=== PATIENT | female | born 1945 | race Caucasian/White ===

== ENCOUNTER 2017-06-11 13:31 | Inpatient (IN) | payer BC, MEDICARE ==
[~2017-06-11] VITALS: Ht 157.5 cm; Wt 63.5 kg
[~2017-06-11 13:31] MED LIST: ALLO100T PO; AMLO2.5T OR; ATOR20TA42 PO; BUPR300T OR; GERITOL; LORTA5 PO; METO50TA OR; MOBI7.5S PO; RANI300T PO; TRAZ50TA4 PO
[2017-06-11 13:38] VITALS: BP 125/76; PULSE 56; RESP 16; TEMP 97.7; O2SAT 98
[2017-06-11] MEDS ORDERED: TRAZ100T6 PO (14:05)
[2017-06-11] MEDS ORDERED: MELO7.5T4 PO (14:05)
[2017-06-11] MEDS ORDERED: ALLO100T PO (14:05)
[2017-06-11] MEDS ORDERED: AMLO2.5T PO (14:05)
[2017-06-11] MEDS ORDERED: METO50TA PO (14:05)
[2017-06-11] MEDS ORDERED: ATOR20TA15 PO (14:05)
[2017-06-11] MEDS ORDERED: BUPR300T PO (14:05)
[2017-06-11] MEDS ORDERED: RANI300T PO (14:05)
--- NOTE | 2017-06-11 14:33 | PD ---
HPI Chief Complaint: Fall Time Seen by Provider: 14:15 Travel History International Travel<30 days: No Contact w/Intl Traveler<30days: No Traveled to known affect area: No History of Present Illness HPI 72-year-old female presents to the emergency room for evaluation of right anterior hip pain for the past 2 days. Patient states 2 days ago she tripped while taking out the trash and felt to the right landing on her right hip. She denies hitting her head or loss of consciousness. States she caught herself with her wrist but denies wrist pain at this time. Patient was able to get up off the floor without difficulty or help. She has been ambulating since then around her house but with pain. Patient took Tylenol for the generalized soreness she fell which relieved her symptoms but she has persistent hip pain. Pain is localized to the anterior aspect and worse with any range of motion. At rest, she has no pain. Denies paresthesias. States a range of motion and radiates to the buttocks but otherwise there is no radiation. Orthopedic physician is Dr. Burgess. [facility] Past Medical History Arthritis: Yes Blood Disorders: No Anxiety: Yes Depression: Yes Cardiovascular Problems: Yes High Cholesterol: Yes Diminished Hearing: No Endocrine: No Gastrointestinal Disorders: Yes GERD: Yes Gout: Yes Genitourinary: No Headaches: Yes Hypertension: Yes Immune Disorder: No Implanted Vascular Access Dvce: No Musculoskeletal: Yes Neurologic: Yes Psychiatric: Yes Reproductive: No Respiratory: No Immunizations Current: Yes ?: Not Past Surgical History Appendectomy: Yes Gynecologic Surgery: Yes (HYST) Hysterectomy: Yes Other Surgery: Yes (MOUTS SURGERY) Social History Alcohol Use: Yes (occ) Tobacco Use: No Substance Use: No Allergies-Medications (Allergen,Severity, Reaction): Coded Allergies: escitalopram (Unverified Allergy, Mild, 04/11/17) Reported Meds & Prescriptions Reported Meds & Active Scripts Active Reported Trazodone (Trazodone HCl) 100 Mg Tablet 100 Mg PO HS Ranitidine (Ranitidine HCl) 300 Mg Tab 300 Mg PO DAILY Metoprolol Tartrate 50 Mg Tab 50 Mg PO BID Meloxicam 7.5 Mg Tab 7.5 Mg PO DAILY Bupropion HCl ER 24 HR (Bupropion HCl) 300 Mg Tab 300 Mg PO DAILY Atorvastatin (Atorvastatin Calcium) 20 Mg Tab 20 Mg PO HS Amlodipine (Amlodipine Besylate) 2.5 Mg Tab 2.5 Mg PO DAILY Allopurinol 100 Mg Tab 100 Mg PO DAILY Review of Systems Except as stated in HPI: all other systems reviewed are Neg Physical Exam Narrative GENERAL: Well-nourished, well-developed female in no acute distress. Afebrile. Ambulatory. SKIN: Focused skin assessment warm/dry. HEAD: Normocephalic. EYES: No scleral icterus. No injection or drainage. NECK: Supple, trachea midline. No JVD or lymphadenopathy. CARDIOVASCULAR: Regular rate and rhythm without murmurs, gallops, or rubs. RESPIRATORY: Breath sounds equal bilaterally. No accessory muscle use. MUSCULOSKELETAL: No cyanosis. Slightly limited range motion of the right hip. No rotation or shortening. 2+ dorsalis pedis pulse. No obvious edema. Focal tenderness to palpation of the iliofemoral ligament. Data Data Last Documented VS Vital Signs Date Time Temp Pulse Resp B/P (MAP) Pulse Ox O2 Delivery O2 Flow Rate FiO2 06/11/17 17:33 65 18 175/76 (109) 98 Room Air 06/11/17 13:38 97.7 Orders Orders Pelvis, Ap Only (Routine) (06/11/17 ) Hip, Uni(Ap&Lat) Wo Ap Pelvis (06/11/17 ) Electrocardiogram (06/11/17 18:58) Complete Blood Count With Diff (06/11/17 18:58) Comprehensive Metabolic Panel (06/11/17 18:58) Prothrombin Time / Inr (Pt) (06/11/17 18:58) Act Partial Throm Time (Ptt) (06/11/17 18:58) Type And Screen (06/11/17 18:58) Iv Access Insert/Monitor (06/11/17 18:58) Oximetry (06/11/17 18:58) Ice/Cold Pack (06/11/17 18:58) Ecg Monitoring (06/11/17 18:58) Sodium Chloride 0.9% Flush (Ns Flush) (06/11/17 19:00) Diet Npo (06/11/17 Dinner) Admit To Inpatient (06/11/17 ) Vital Signs (Adult) Q4H (06/11/17 19:15) Activity Bed Rest (06/11/17 19:15) Diet Npo (06/12/17 Breakfast) Diet Regular Basic (06/11/17 Dinner) Sodium Chlor 0.9% 1000 Ml Inj (Ns 1000 M (06/11/17 19:15) Sodium Chloride 0.9% Flush (Ns Flush) (06/11/17 19:15) Sodium Chloride 0.9% Flush (Ns Flush) (06/11/17 21:00) Ondansetron Inj (Zofran Inj) (06/11/17 19:15) Comprehensive Metabolic Panel (06/12/17 06:00) Complete Blood Count With Diff (06/12/17 06:00) Acetaminophen (Tylenol) (06/11/17 19:15) Acetamin-Hydrocod 325-5 Mg ([place] 5-325 (06/11/17 19:15) Morphine Inj (Morphine Inj) (06/11/17 19:15) Docusate Sodium-Senna (Mariela-Colace) (06/11/17 21:00) Magnesium Hydroxide Liq (Milk Of Magnesi (06/11/17 19:15) Sennosides (Senokot) (06/11/17 19:15) Bisacodyl Supp (Dulcolax Supp) (06/11/17 19:15) Lactulose Liq (Lactulose Liq) (06/11/17 19:15) Inpatient Certification (06/11/17 ) Allopurinol (Zyloprim) (06/12/17 09:00) Amlodipine (Norvasc) (06/12/17 09:00) Atorvastatin (Lipitor) (06/11/17 21:00) Metoprolol Tartrate (Lopressor) (06/11/17 21:00) Trazodone (Desyrel) (06/11/17 21:00) Bupropion Sr (Wellbutrin Sr) (06/11/17 21:00) Consult Orthopedic (06/11/17 ) Pill Splitter (Pill Splitter) (06/11/17 19:45) Admit Order (Ed Use Only) (06/11/17 19:36) Vital Signs (Adult) Q4H (06/11/17 19:36) Activity Bed Rest (06/11/17 19:36) Notify Dr: Other (06/11/17 19:36) Labs Laboratory Tests Test 06/11/17 19:12 White Blood Count 4.6 TH/MM3 Red Blood Count 3.79 MIL/MM3 Hemoglobin 11.7 GM/DL Hematocrit 35.1 % Mean Corpuscular Volume 92.5 FL Mean Corpuscular Hemoglobin 30.7 PG Mean Corpuscular Hemoglobin Concent 33.3 % Red Cell Distribution Width 14.0 % Platelet Count 120 TH/MM3 Mean Platelet Volume 7.7 FL Neutrophils (%) (Auto) 57.3 % Lymphocytes (%) (Auto) 26.2 % Monocytes (%) (Auto) 7.1 % Eosinophils (%) (Auto) 8.9 % Basophils (%) (Auto) 0.5 % Neutrophils # (Auto) 2.7 TH/MM3 Lymphocytes # (Auto) 1.2 TH/MM3 Monocytes # (Auto) 0.3 TH/MM3 Eosinophils # (Auto) 0.4 TH/MM3 Basophils # (Auto) 0.0 TH/MM3 CBC Comment DIFF FINAL Differential Comment Blood Urea Nitrogen 19 MG/DL Random Glucose 78 MG/DL Albumin 3.3 GM/DL Calcium Level 8.3 MG/DL Sodium Level 135 MEQ/L Potassium Level 3.9 MEQ/L Chloride Level 101 MEQ/L Carbon Dioxide Level 25.9 MEQ/L Anion Gap 8 MEQ/L MDM Medical Decision Making Medical Screen Exam Complete: Yes Emergency Medical Condition: Yes Medical Record Reviewed: Yes Differential Diagnosis Strength, sprain, contusion fracture Narrative Course 72-year-old female presents to the emergency room for evaluation of right hip pain for the past 3 days. Patient slipped and fell landing on her right hip. She was able to get up and has been able to ambulate since then but with pain. Pain is localized anteriorly. Radiates to the buttocks on occasion. Physical exam is reassuring. Slightly limited range motion of the right hip. No rotation or shortening. 2+ dorsalis pedis pulse. No obvious edema. Focal tenderness to palpation of the iliofemoral ligament. Have low suspicion for fracture. Pelvic x-ray was obtained which shows deformity at which time hip AP and pelvis x-rays were obtained. X-rays show a femoral neck fracture without dislocation. I spoke to the orthopedic surgeon on-call, Dr. Werner, who recommends admission with transfer to [facility] for surgical intervention tomorrow. Patient will be nothing by mouth at midnight. She will be admitted to medical service. I spoke to Dr. Cruz who agrees to accept this patient to her service. Preop EKG shows sinus bradycardia with rate of 55 bpm, similar to previous; signed off by my attending physician, Dr. Miller. Physician Communication Physician Communication I spoke to Dr. Werner who recommends admission to the main hospital for surgical intervention tomorrow. Diagnosis Primary Impression: Closed fracture of neck of right femur Qualified Codes: S72.001A - Fracture of unspecified part of neck of right femur, initial encounter for closed fracture Admitting Information Admitting Physician Requests: Admit Referrals: Primary Care Physician Condition: Stable Joyce Mack Jun 11, 2017 14:33
--- NOTE | 2017-06-11 16:04 | RADRPT ---
EXAM DATE/TIME: 06/11/2017 15:42 [facility] COMPARISON: HIP RIGHT (AP&LAT 2/3VWS) WO AP PELVIS, June 11, 2017, 15:49. INDICATIONS : Right hip pain and unable to bear weight , patient fell 2 days ago. MEDICAL HISTORY : None. SURGICAL HISTORY : None. ENCOUNTER: Initial ACUITY: 2 days PAIN SCORE: 9/10 LOCATION: Right hip FINDINGS: There is a subcapital fracture the right femoral neck. Femoral head is not dislocated. CONCLUSION: 1. Right femoral neck fracture Torsten Diaz MD on June 11, 2017 at 16:02 Board Certified Radiologist. This report was verified electronically.
--- NOTE | 2017-06-11 16:45 | RADRPT ---
EXAM DATE/TIME: 06/11/2017 15:49 [facility] COMPARISON: No previous studies available for comparison. INDICATIONS : Right hip pain and unable to bear weight after fall 2 days ago. MEDICAL HISTORY : None. SURGICAL HISTORY : None. ENCOUNTER: Initial ACUITY: 2 days PAIN SCORE: 9/10 LOCATION: Right hip FINDINGS: Subcapital fracture the right femoral neck. Femoral head is not dislocated. The joint space is mainta ined. CONCLUSION: 1. Right femoral neck fracture Torsten Diaz MD on June 11, 2017 at 16:43 Board Certified Radiologist. This report was verified electronically.
[2017-06-11 17:33] VITALS: BP 175/76; PULSE 65; RESP 18; O2SAT 98
[2017-06-11] MEDS ORDERED: SODIUM CHLORIDE 0.9% FLUSH 10 ML FLUSH IVF PRN (19:00)
[2017-06-11] MEDS ORDERED: ACETAMINOPHEN 325 MG TAB PO PRN (19:15)
[2017-06-11] MEDS ORDERED: ONDANSETRON HCL 4 MG/2 ML VIAL IVP PRN (19:15)
[2017-06-11] MEDS ORDERED: SODIUM CHLORIDE 0.9% FLUSH 10 ML FLUSH IV FLUSH PRN (19:15)
[2017-06-11] MEDS ORDERED: BISACODYL 10 MG SUPP RECTAL PRN (19:15)
[2017-06-11] MEDS ORDERED: MAGNESIUM HYDROXIDE SUSP 30 ML CUP PO PRN (19:15)
[2017-06-11] MEDS ORDERED: MORPHINE SULFATE 4 MG/ML INJ IV PUSH PRN (19:15)
[2017-06-11] MEDS ORDERED: ACETAMINOPHEN/HYDROcodone 325 MG/5 MG TAB PO PRN (19:15)
[2017-06-11] MEDS ORDERED: SENNOSIDES 8.6 MG TAB PO PRN (19:15)
[2017-06-11] MEDS ORDERED: LACTULOSE SYRUP 20 GM/30 ML CUP PO PRN (19:15)
[2017-06-11 19:27] LABS: AUTOMATED NEUTROPHIL # 2.7 TH/MM3 (1.8-7.7); BASOPHIL % 0.5 % (0.0-2.0); EOSINOPHIL # 0.4 TH/MM3 (0-0.4); EOSINOPHIL % 8.9 % (0.0-4.0); HEMATOCRIT 35.1 % (35.0-46.0); HEMO FLAGS DIFF FINAL; LYMPH % 26.2 % (9.0-44.0); LYMPHOCYTE # 1.2 TH/MM3 (1.0-4.8); MEAN CELL VOLUME 92.5 FL (80.0-100.0); MEAN CORPUSCULAR HEMOGLOBIN 30.7 PG (27.0-34.0); MEAN CORPUSCULAR HGB CONC 33.3 % (32.0-36.0); MONO % 7.1 % (0.0-8.0); NEUT % 57.3 % (16.0-70.0); PLATELET COUNT 120 TH/MM3 (150-450); RED BLOOD COUNT 3.79 MIL/MM3 (4.00-5.30); WHITE BLOOD COUNT 4.6 TH/MM3 (4.0-11.0)
[2017-06-11 19:38] LABS: CHLORIDE 101 MEQ/L (98-107); POTASSIUM 3.9 MEQ/L (3.5-5.1); SODIUM (NA) 135 MEQ/L (136-145)
[2017-06-11 19:42] LABS: ANION GAP 8 MEQ/L (5-15); BICARBONATE 25.9 MEQ/L (21.0-32.0); BLOOD UREA NITROGEN 19 MG/DL (7-18)
[2017-06-11 19:45] LABS: ALT (GPT) 25 U/L (10-53); APTT (PATIENT) 25.5 SEC (24.3-30.1); AST (GOT) 24 U/L (15-37); GLOMERULAR FILTRATION RATE 59 ML/MIN (>89); PROTHROMBIN TIME - PATIENT 10.7 SEC (9.8-11.6)
[2017-06-11] MEDS ORDERED: PILL SPLITTER OTHER PRN (19:45)
[2017-06-11 19:47] LABS: TOTAL BILIRUBIN ADULT 0.6 MG/DL (0.2-1.0)
[2017-06-11 19:48] LABS: ALKALINE PHOSPHATASE 50 U/L (45-117)
[2017-06-11] MEDS: SODIUM CHLOR 0.9% 1000 ML INJ 1,000 ML IV SCH (20:16)
[2017-06-11 20:26] VITALS: O2SAT 97
[2017-06-11 20:27] VITALS: BP 154/80; PULSE 57; RESP 16; O2SAT 97
[2017-06-11] MEDS: SODIUM CHLORIDE 0.9% FLUSH 10 ML FLUSH IV FLUSH SCH (21:00)
[2017-06-11] MEDS: DOCUSATE SODIUM 50 MG/SENNA 8.6 MG TAB PO SCH (21:00)
[2017-06-11] MEDS: ATORVASTATIN 20 MG TAB PO SCH (21:19)
[2017-06-11] MEDS: METOPROLOL TARTRATE 50 MG TAB PO SCH (21:19)
[2017-06-11] MEDS: traZODone HCL 100 MG TAB PO SCH (21:19)
[2017-06-11] MEDS: buPROPion HCL 150 MG SUSTAINED RELEASE TAB PO SCH (21:19)
[2017-06-11 21:25] VITALS: BP 156/84; PULSE 56; RESP 16; O2SAT 95
[2017-06-11] MEDS ORDERED: INSULIN HUMAN REGULAR 1,000 UNITS/10 ML VIAL SQ PRN (22:30)
[2017-06-11] MEDS ORDERED: LACTATED RINGER'S 1000 ML IV PRN (22:30)
[2017-06-11] MEDS ORDERED: POVIDONE IODINE 5% (ANTISEPSIS KIT) 4 APPLICATIONS EACH NARE PRN (22:30)
[2017-06-11] MEDS ORDERED: CHLORHEXIDINE GLUCONATE 2 % 1 PACK (2 CLOTHS) TOPICAL PRN (22:30)
[2017-06-11] MEDS ORDERED: SODIUM CHLORID 0.9% 500 ML IV PRN (22:30)
[2017-06-12] VITALS (8 sets, daily range): BP systolic 125–184; BP diastolic 59–87; PULSE 50–60; RESP 16–17; TEMP 96.6–97.9; O2SAT 95–97
[2017-06-12] MEDS: SODIUM CHLOR 0.9% 1000 ML INJ 1,000 ML IV SCH ×3 (05:15→20:39)
[2017-06-12 06:36] LABS: AUTOMATED NEUTROPHIL # 3.1 TH/MM3 (1.8-7.7); BASOPHIL # 0.1 TH/MM3 (0-0.2); BASOPHIL % 0.9 % (0.0-2.0); EOSINOPHIL # 0.5 TH/MM3 (0-0.4); EOSINOPHIL % 8.9 % (0.0-4.0); HEMATOCRIT 33.9 % (35.0-46.0); HEMO FLAGS DIFF FINAL; LYMPHOCYTE # 1.4 TH/MM3 (1.0-4.8); MEAN CELL VOLUME 93.5 FL (80.0-100.0); MEAN CORPUSCULAR HEMOGLOBIN 31.2 PG (27.0-34.0); MEAN CORPUSCULAR HGB CONC 33.4 % (32.0-36.0); MONO % 9.7 % (0.0-8.0); NEUT % 55.5 % (16.0-70.0); PLATELET COUNT 108 TH/MM3 (150-450); RED BLOOD COUNT 3.63 MIL/MM3 (4.00-5.30); RED CELL DISTRIBUTION WIDTH 14.8 % (11.6-17.2); WHITE BLOOD COUNT 5.6 TH/MM3 (4.0-11.0)
[2017-06-12 07:04] LABS: ALT (GPT) 21 U/L (10-53); ANION GAP 8 MEQ/L (5-15); AST (GOT) 17 U/L (15-37); BICARBONATE 26.5 MEQ/L (21.0-32.0); BLOOD UREA NITROGEN 16 MG/DL (7-18); CHLORIDE 104 MEQ/L (98-107); GLOMERULAR FILTRATION RATE 67 ML/MIN (>89); POTASSIUM 3.7 MEQ/L (3.5-5.1); SODIUM (NA) 138 MEQ/L (136-145)
[2017-06-12 07:06] LABS: ALKALINE PHOSPHATASE 50 U/L (45-117); TOTAL BILIRUBIN ADULT 0.5 MG/DL (0.2-1.0)
[2017-06-12] MEDS: METOPROLOL TARTRATE 50 MG TAB PO SCH ×2 (08:52→20:38)
[2017-06-12] MEDS ORDERED: PNEUMOCOCCAL POLYVALENT INJ 25 MCG/0.5 ML SYR IM ONE (09:00)
[2017-06-12] MEDS: amLODIPine BESYLATE 5 MG TAB PO SCH (09:00)
[2017-06-12] MEDS ORDERED: INFLUENZA VIRUS VACCINE (QUADRIVALENT) 0.5 ML SYR IM ONE (09:00)
[2017-06-12] MEDS: SODIUM CHLORIDE 0.9% FLUSH 10 ML FLUSH IV FLUSH SCH ×2 (09:00→20:38)
[2017-06-12] MEDS: ALLOPURINOL 100 MG TAB PO SCH (09:00)
[2017-06-12] MEDS: DOCUSATE SODIUM 50 MG/SENNA 8.6 MG TAB PO SCH ×2 (09:00→20:37)
[2017-06-12] MEDS: buPROPion HCL 150 MG SUSTAINED RELEASE TAB PO SCH ×2 (09:00→20:38)
--- NOTE | 2017-06-12 10:17 | HHI.HP ---
[facility] Service [place] [facility] Primary Care Physician Eloisa Kwong MD Admission Diagnosis right hip fracture Diagnoses: (1) Closed fracture of neck of right femur Diagnosis: Principal Travel History International Travel<30 Days: No Contact w/Intl Traveler <30 Da: No Traveled to Known Affected Are: No History of Present Illness Mrs. Willams is a 72-year-old female. She is here secondary to a right hip fracture. She fell on her right hip 2 days prior to coming into the ER. Over these past 2 days she has had pain with weightbearing and attempts at ambulation. She says she is not in too much pain when she sits in the bed. Pain has been referred to the right groin. She came to the emergency room last night was discovered to have a fracture of the right hip. No other complaints. The following was accidental not related to syncope. No positive cardiac or pulmonary history. Baseline medical conditions or osteoarthritis, anxiety disorder, depression, hyperlipidemia, reflux, gout, hypertension. Medically she is clear for surgery today. Review of Systems Constitutional: DENIES: Fatigue, Fever, Chills, Night Sweats Eyes: DENIES: Blurred vision, Diplopia, Eye inflammation, Eye pain Ears, nose, mouth, throat: DENIES: Tinnitus, Hearing loss, Vertigo, Nasal discharge Respiratory: DENIES: Apneas, Cough, Wheezing, Shortness of breath Cardiovascular: DENIES: Chest pain, Palpitations, Syncope Gastrointestinal: DENIES: Abdominal pain, Black stools, Bloody stools Musculoskeletal: COMPLAINS OF: Joint pain, Stiffness, Joint Swelling Integumentary: DENIES: Abnormal pigmentation, Pruritus, Rash, Nail changes Hematologic/lymphatic: DENIES: Bruising, Lymphadenopathy Immunologic/allergic: DENIES: Eczema, Urticaria Neurologic: DENIES: Abnormal gait, Headache, Paresthesias Psychiatric: DENIES: Anxiety, Confusion, Hallucinations Past Family Social History Past Medical History Osteoarthritis Gen. anxiety disorder Depression Hyperlipidemia Gastroesophageal reflux disease Gout Hypertension Past Surgical History Appendectomy Hysterectomy Left shoulder mass removal Bilateral knee surgeries/replacements Reported Medications Reported Meds & Active Scripts Active Reported Trazodone (Trazodone HCl) 100 Mg Tablet 100 Mg PO HS Ranitidine (Ranitidine HCl) 300 Mg Tab 300 Mg PO DAILY Metoprolol Tartrate 50 Mg Tab 50 Mg PO BID Meloxicam 7.5 Mg Tab 7.5 Mg PO DAILY Bupropion HCl ER 24 HR (Bupropion HCl) 300 Mg Tab 300 Mg PO DAILY Atorvastatin (Atorvastatin Calcium) 20 Mg Tab 20 Mg PO HS Amlodipine (Amlodipine Besylate) 2.5 Mg Tab 2.5 Mg PO DAILY Allopurinol 100 Mg Tab 100 Mg PO DAILY Allergies: Coded Allergies: escitalopram (Unverified Allergy, Mild, 04/11/17) Active Ordered Medications Administered Medications Medications (Trade) Dose Ordered Sig/Homar Route PRN Reason Start Time Stop Time Status Last Admin Dose Admin Sodium Chloride 1,000 ml @ 100 mls/hr Q10H IV 06/11/17 19:15 06/11/17 20:16 Atorvastatin Calcium (Lipitor) 20 mg HS PO 06/11/17 21:00 06/11/17 21:19 Bupropion HCl (Wellbutrin Sr) 150 mg Q12HR PO 06/11/17 21:00 06/11/17 21:19 Metoprolol Tartrate (Lopressor) 50 mg BID PO 06/11/17 21:00 06/12/17 08:52 Trazodone HCl (Desyrel) 100 mg HS PO 06/11/17 21:00 06/11/17 21:19 Lactated Ringer's 1,000 ml @ 30 mls/hr Q24H PRN IV SEE LABEL COMMENTS 06/11/17 22:30 06/14/17 22:29 06/12/17 04:43 Family History Liver cancer in mother Colon cancer in maternal grandmother Coronary artery disease in father Breast cancer in sister Social History Occasional alcohol use No smoking history No illicit drug abuse history Physical Exam Vital Signs Vital Signs Date Time Temp Pulse Resp B/P (MAP) Pulse Ox O2 Delivery O2 Flow Rate FiO2 06/12/17 04:23 97.3 56 17 125/67 (86) 96 06/12/17 00:30 97.5 57 17 184/87 (119) 96 06/11/17 23:02 06/11/17 21:25 56 16 156/84 (108) 95 Room Air 06/11/17 21:01 Room Air 06/11/17 20:27 57 16 154/80 (104) 97 06/11/17 20:26 97 06/11/17 17:33 65 18 175/76 (109) 98 Room Air 06/11/17 13:38 97.7 56 16 125/76 (92) 98 Physical Exam GENERAL: NAD, A&Ox3 HEAD: Normocephalic. NECK: Supple, trachea midline. No lymphadenopathy. EYES: No scleral icterus. No injection or drainage. CARDIOVASCULAR: Regular rate and rhythm without murmurs, gallops, or rubs. RESPIRATORY: Breath sounds equal bilaterally. No accessory muscle use. GASTROINTESTINAL: Abdomen soft, non-tender, nondistended. MUSCULOSKELETAL: No cyanosis, or edema. Limited range of motion and tenderness at right hip SKIN: Warm and dry. NEURO: No focal neurological deficitis. Laboratory Laboratory Tests Test 06/11/17 19:12 06/12/17 05:48 White Blood Count 4.6 5.6 Red Blood Count 3.79 3.63 Hemoglobin 11.7 11.3 Hematocrit 35.1 33.9 Mean Corpuscular Volume 92.5 93.5 Mean Corpuscular Hemoglobin 30.7 31.2 Mean Corpuscular Hemoglobin Concent 33.3 33.4 Red Cell Distribution Width 14.0 14.8 Platelet Count 120 108 Mean Platelet Volume 7.7 8.1 Neutrophils (%) (Auto) 57.3 55.5 Lymphocytes (%) (Auto) 26.2 25.0 Monocytes (%) (Auto) 7.1 9.7 Eosinophils (%) (Auto) 8.9 8.9 Basophils (%) (Auto) 0.5 0.9 Neutrophils # (Auto) 2.7 3.1 Lymphocytes # (Auto) 1.2 1.4 Monocytes # (Auto) 0.3 0.5 Eosinophils # (Auto) 0.4 0.5 Basophils # (Auto) 0.0 0.1 CBC Comment DIFF FINAL DIFF FINAL Differential Comment Prothrombin Time 10.7 Prothromb Time International Ratio 1.0 Activated Partial Thromboplast Time 25.5 Blood Urea Nitrogen 19 16 Creatinine 0.93 0.83 Random Glucose 78 83 Total Protein 6.4 6.2 Albumin 3.3 3.1 Calcium Level 8.3 8.8 Alkaline Phosphatase 50 50 Aspartate Amino Transf (AST/SGOT) 24 17 Alanine Aminotransferase (ALT/SGPT) 25 21 Total Bilirubin 0.6 0.5 Sodium Level 135 138 Potassium Level 3.9 3.7 Chloride Level 101 104 Carbon Dioxide Level 25.9 26.5 Anion Gap 8 8 Estimat Glomerular Filtration Rate 59 67 Result Diagram: 06/12/1754706/12/17547 Caprini VTE Risk Assessment Caprini VTE Risk Assessment: Mod/High Risk (score >= 2) Caprini Risk Assessment Model Point Value = 1 Point Value = 2 Point Value = 3 Point Value = 5 Age 41-60 Minor surgery BMI > 25 kg/m2 Swollen legs Varicose veins or History of unexplained or recurrent spontaneous Oral contraceptives or hormone replacement Sepsis (< 1 month) Serious lung disease, including pneumonia (< 1 month) Abnormal pulmonary function Acute myocardial infarction Congestive heart failure (< 1 month) History of inflammatory bowel disease Medical patient at bed rest Age 61-74 Arthroscopic surgery Major open surgery (> 45 min) Laparoscopic surgery (> 45 min) Malignancy Confined to bed (> 72 hours) Immobilizing plaster cast Central venous access Age >= 75 History of VTE Family history of VTE Factor V Leiden Prothrombin 14051A Lupus anticoagulant Anticardiolipin antibodies Elevated serum homocysteine Heparin-induced thrombocytopenia Other congenital or acquired thrombophilia Stroke (< 1 month) Elective arthroplasty Hip, pelvis, or leg fracture Acute spinal cord injury (< 1 month) Prophylaxis Regimen Total Risk Factor Score Risk Level Prophylaxis Regimen 0-1 Low Early ambulation 2 Moderate Order ONE of the following: *Sequential Compression Device (SCD) *Heparin 5000 units SQ BID 3-4 Higher Order ONE of the following medications: *Heparin 5000 units SQ TID *Enoxaparin/Lovenox 40 mg SQ daily (WT < 150 kg, CrCl > 30 mL/min) *Enoxaparin/Lovenox 30 mg SQ daily (WT < 150 kg, CrCl > 10-29 mL/min) *Enoxaparin/Lovenox 30 mg SQ BID (WT < 150 kg, CrCl > 30 mL/min) AND/OR *Sequential Compression Device (SCD) 5 or more Highest Order ONE of the following medications: *Heparin 5000 units SQ TID (Preferred with Epidurals) *Enoxaparin/Lovenox 40 mg SQ daily (WT < 150 kg, CrCl > 30 mL/min) *Enoxaparin/Lovenox 30 mg SQ daily (WT < 150 kg, CrCl > 10-29 mL/min) *Enoxaparin/Lovenox 30 mg SQ BID (WT < 150 kg, CrCl > 30 mL/min) AND *Sequential Compression Device (SCD) Assessment and Plan Problem List: (1) Closed fracture of neck of right femur ICD Code: S72.001A - Fracture of unspecified part of neck of right femur, initial encounter for closed fracture Status: Acute Assessment and Plan Assessment and plan 72-year-old female admitted secondary to right hip fracture Acute right hip fracture Surgical repair plan Continue as needed pain treatments Orthotic consulted PT to start postop Blood thinners to start postop Gen. anxiety disorder Depression Continue baseline treatments Follow clinically Hyperlipidemia Follows in outpatient No change to baseline treatments Gastroesophageal reflux disease Continue baseline treatments Gout Monitor clinically No change to baseline managements Hypertension Follow blood pressures Continue baseline treatments DVT prophylaxis SCDs for now Anticoagulation postop, per orthopedic recommendations Physician Certification 2 Midnight Certification Type: Admission for Inpatient Services Order for Inpatient Services The services are ordered in accordance with Medicare regulations or non- Medicare payer requirements, as applicable. In the case of services not specified as inpatient-only, they are appropriately provided as inpatient services in accordance with the 2-midnight benchmark. Estimated LOS (days): 3 days is the estimated time the patient will need to remain in the hospital, assuming treatment plan goals are met and no additional complications. Post-Hospital Plan: Home Problem Qualifiers (1) Closed fracture of neck of right femur: Qualified Codes: S72.001A - Fracture of unspecified part of neck of right femur , initial encounter for closed fracture Ye Riggs MD Jun 12, 2017 10:17
[2017-06-12] MEDS ORDERED: PROPOFOL 200 MG/20 ML AMP IV ONE (12:00)
[2017-06-12] MEDS ORDERED: MIDAZOLAM HCL 2 MG/2 ML VIAL IV ONE (12:00)
[2017-06-12] MEDS ORDERED: ePHEDrine/NS 25 MG/5 ML SYR IV ONE (12:00)
[2017-06-12] MEDS ORDERED: PERC5TAB12 PO (13:08)
[2017-06-12] MEDS ORDERED: ceFAZolin 2 GM PREMIX 50 ML IV SCH (13:15)
[2017-06-12] MEDS ORDERED: ceFAZolin INJ 1,000 MG VIAL ONE (13:54)
[2017-06-12] MEDS ORDERED: VANCOMYCIN HCL 1000 MG VIAL ONE (13:54)
--- NOTE | 2017-06-12 14:17 | PD.CONS ---
cc: Juan Werner Jr., MD HPI Service Orthopedic Surgeons Consult Requested By Primary Care Physician Eloisa Kwong MD Admission Diagnosis right hip fracture Diagnoses: (1) Closed fracture of neck of right femur History of Present Illness 72-year-old female relatively healty presented with right hip pain and difficulty weightbearing since Monday. -s/p fall at home while taking on the trash. -c/o right hip pain and inability bear weight. -X-ray taken the emergency department reveal a valgus impacted right femoral neck fracture. -Denies any head injuries. Denies loss of consciousness. -Currently is alert, pain localized at the hip, patient's is 3 out of 10, exacerbated by any range of motion, log roll, WB, relieved at rest and with IV pain medicine, pain is sharp nonradiating, dull, not associated with any paresthesia and numbness to the extremity. ROS - General Review of Systems Constitutional: DENIES: Fatigue, Fever, Chills, Night Sweats Eyes: DENIES: Blurred vision, Diplopia, Eye inflammation, Eye pain Ears, nose, mouth, throat: DENIES: Tinnitus, Hearing loss, Vertigo, Nasal discharge Respiratory: DENIES: Apneas, Cough, Wheezing, Shortness of breath Cardiovascular: DENIES: Chest pain, Palpitations, Syncope Gastrointestinal: DENIES: Abdominal pain, Black stools, Bloody stools Musculoskeletal: COMPLAINS OF: Joint pain, Stiffness, Joint Swelling Integumentary: DENIES: Abnormal pigmentation, Pruritus, Rash, Nail changes Hematologic/lymphatic: DENIES: Bruising, Lymphadenopathy Immunologic/allergic: DENIES: Eczema, Urticaria Neurologic: DENIES: Abnormal gait, Headache, Paresthesias Psychiatric: DENIES: Anxiety, Confusion, Hallucinations PFSH Past Family Social History Past Medical History Osteoarthritis Gen. anxiety disorder Depression Hyperlipidemia Gastroesophageal reflux disease Gout Hypertension Past Surgical History Appendectomy Hysterectomy Left shoulder mass removal Bilateral knee surgeries/replacements Reported Medications Reported Meds & Active Scripts Active Reported Trazodone (Trazodone HCl) 100 Mg Tablet 100 Mg PO HS Ranitidine (Ranitidine HCl) 300 Mg Tab 300 Mg PO DAILY Metoprolol Tartrate 50 Mg Tab 50 Mg PO BID Meloxicam 7.5 Mg Tab 7.5 Mg PO DAILY Bupropion HCl ER 24 HR (Bupropion HCl) 300 Mg Tab 300 Mg PO DAILY Atorvastatin (Atorvastatin Calcium) 20 Mg Tab 20 Mg PO HS Amlodipine (Amlodipine Besylate) 2.5 Mg Tab 2.5 Mg PO DAILY Allopurinol 100 Mg Tab 100 Mg PO DAILY Allergies: Coded Allergies: escitalopram (Unverified Allergy, Mild, 04/11/17) Past Family Social History Past Medical History Osteoarthritis Gen. anxiety disorder Depression Hyperlipidemia Gastroesophageal reflux disease Gout Hypertension Past Surgical History Appendectomy Hysterectomy Left shoulder mass removal Bilateral knee surgeries/replacements Allergies: Coded Allergies: escitalopram (Unverified Allergy, Mild, 04/11/17) Active Ordered Medications Current Medications Medications (Trade) Dose Ordered Sig/Homar Route Start Time Stop Time Status Last Admin Sodium Chloride 1,000 ml @ 100 mls/hr Q10H IV 06/11/17 19:15 06/11/17 20:16 (NS Flush) 2 ml UNSCH PRN IV FLUSH 06/11/17 19:15 (NS Flush) 2 ml BID IV FLUSH 06/11/17 21:00 (Zofran Inj) 4 mg Q6H PRN IVP 06/11/17 19:15 (Tylenol) 650 mg Q6H PRN PO 06/11/17 19:15 ([place] 5-325 Mg) 1 tab Q4H PRN PO 06/11/17 19:15 (Morphine Inj) 2 mg Q3H PRN IV PUSH 06/11/17 19:15 (Mariela-Colace) 1 tab BID PO 06/11/17 21:00 (Milk Of Magnesia Liq) 30 ml Q12H PRN PO 06/11/17 19:15 (Senokot) 17.2 mg Q12H PRN PO 06/11/17 19:15 (Dulcolax Supp) 10 mg DAILY PRN RECTAL 06/11/17 19:15 (Lactulose Liq) 30 ml DAILY PRN PO 06/11/17 19:15 (Zyloprim) 100 mg DAILY PO 06/12/17 09:00 (Norvasc) 2.5 mg DAILY PO 06/12/17 09:00 (Lipitor) 20 mg HS PO 06/11/17 21:00 06/11/17 21:19 (Wellbutrin Sr) 150 mg Q12HR PO 06/11/17 21:00 06/11/17 21:19 (Lopressor) 50 mg BID PO 06/11/17 21:00 06/12/17 08:52 (Desyrel) 100 mg HS PO 06/11/17 21:00 06/11/17 21:19 (Pill Splitter) 1 ea UNSCH PRN OTHER 06/11/17 19:45 Lactated Ringer's 1,000 ml @ 30 mls/hr Q24H PRN IV 06/11/17 22:30 06/14/17 22:29 06/12/17 04:43 Sodium Chloride 500 ml @ 30 mls/hr [id number] PRN IV 06/11/17 22:30 06/14/17 22:29 (Betadine 5% Antisepsis Kit) 1 applic [employer] PRN EACH NARE 06/11/17 22:30 06/14/17 22:29 (Chlorhexidine 2% Cloth) 3 pack [employer] PRN TOPICAL 06/11/17 22:30 06/14/17 22:29 (NovoLIN R INJ) See Protocol Table ... [employer] PRN SQ 06/11/17 22:30 06/14/17 22:29 Cefazolin Sodium/ Dextrose 50 ml @ 150 mls/hr [employer] IV 06/12/17 13:15 06/16/17 13:14 Reported Meds & Active Scripts Active Percocet (Oxycodone-Acetaminophen) 5-325 mg Tab 1 Tab PO Q4H PRN Reported Trazodone (Trazodone HCl) 100 Mg Tablet 100 Mg PO HS Ranitidine (Ranitidine HCl) 300 Mg Tab 300 Mg PO DAILY Metoprolol Tartrate 50 Mg Tab 50 Mg PO BID Meloxicam 7.5 Mg Tab 7.5 Mg PO DAILY Bupropion HCl ER 24 HR (Bupropion HCl) 300 Mg Tab 300 Mg PO DAILY Atorvastatin (Atorvastatin Calcium) 20 Mg Tab 20 Mg PO HS Amlodipine (Amlodipine Besylate) 2.5 Mg Tab 2.5 Mg PO DAILY Allopurinol 100 Mg Tab 100 Mg PO DAILY Family History Liver cancer in mother Colon cancer in maternal grandmother Coronary artery disease in father Breast cancer in sister Social History Occasional alcohol use No smoking history No illicit drug abuse history Physical Exam Vital Signs Vital Signs Date Time Temp Pulse Resp B/P (MAP) Pulse Ox O2 Delivery O2 Flow Rate FiO2 06/12/17 08:55 Room Air 06/12/17 08:00 97.0 59 16 149/77 (101) 97 06/12/17 04:23 97.3 56 17 125/67 (86) 96 06/12/17 00:30 97.5 57 17 184/87 (119) 96 06/11/17 23:02 06/11/17 21:25 56 16 156/84 (108) 95 Room Air 06/11/17 21:01 Room Air 06/11/17 20:27 57 16 154/80 (104) 97 06/11/17 20:26 97 06/11/17 17:33 65 18 175/76 (109) 98 Room Air Physical Exam Alert awake and oriented x 3. No acute distress. Head: NC/AT Neck: No pain with any range of motion and neck. Trachea is midline. No tenderness to palpation along posterior cervical elements. Pulmonary: Normal respiratory effort. Bilateral upper extremity: No deformities Intact sensation distally in median, ulnar, and radial nerve. Intact motor in anterior interosseous, posterior interosseous, and ulnar nerve. 2+ radial artery pulses. Good cap refill. RIGHT lower extremity: No deformity, painful range of motion and log roll. TTP at greater tuberosity. Grossly Neurovascularly intact, +EHL/FHL. + PT/DP pulses. Supple compartments. Negative Homans sign. LEFT lower extremity: No deformity, grossly Neurovascularly intact, +EHL/FHL. + PT/DP pulses. Supple compartments. Negative Homans sign. Laboratory Laboratory Tests Test 06/11/17 19:12 06/12/17 05:48 White Blood Count 4.6 5.6 Red Blood Count 3.79 3.63 Hemoglobin 11.7 11.3 Hematocrit 35.1 33.9 Mean Corpuscular Volume 92.5 93.5 Mean Corpuscular Hemoglobin 30.7 31.2 Mean Corpuscular Hemoglobin Concent 33.3 33.4 Red Cell Distribution Width 14.0 14.8 Platelet Count 120 108 Mean Platelet Volume 7.7 8.1 Neutrophils (%) (Auto) 57.3 55.5 Lymphocytes (%) (Auto) 26.2 25.0 Monocytes (%) (Auto) 7.1 9.7 Eosinophils (%) (Auto) 8.9 8.9 Basophils (%) (Auto) 0.5 0.9 Neutrophils # (Auto) 2.7 3.1 Lymphocytes # (Auto) 1.2 1.4 Monocytes # (Auto) 0.3 0.5 Eosinophils # (Auto) 0.4 0.5 Basophils # (Auto) 0.0 0.1 CBC Comment DIFF FINAL DIFF FINAL Differential Comment Prothrombin Time 10.7 Prothromb Time International Ratio 1.0 Activated Partial Thromboplast Time 25.5 Blood Urea Nitrogen 19 16 Creatinine 0.93 0.83 Random Glucose 78 83 Total Protein 6.4 6.2 Albumin 3.3 3.1 Calcium Level 8.3 8.8 Alkaline Phosphatase 50 50 Aspartate Amino Transf (AST/SGOT) 24 17 Alanine Aminotransferase (ALT/SGPT) 25 21 Total Bilirubin 0.6 0.5 Sodium Level 135 138 Potassium Level 3.9 3.7 Chloride Level 101 104 Carbon Dioxide Level 25.9 26.5 Anion Gap 8 8 Estimat Glomerular Filtration Rate 59 67 Result Diagram: 06/12/17 0548 06/12/17 0548 Imaging Last 72 hours Impressions Pelvis X-Ray 06/11/17 0000 Signed Impressions: Service Date/Time: Sunday, June 11, 2017 15:42 - CONCLUSION: 1. Right femoral neck fracture Torsten Diaz MD Hip X-Ray 06/11/17 0000 Signed Impressions: Service Date/Time: Sunday, June 11, 2017 15:49 - CONCLUSION: 1. Right femoral neck fracture Torsten Diaz MD Assessment & Plan Assessment and Plan 72-year-old female relatively healthy status post fall at home while taking the trash out sustaining a right valgus impacted femoral neck fracture. I recommend operative intervention with percutaneous screw fixation. I discussed my treatment plans with the patient, as well as risks, benefits and alternatives of surgical Intervention versus nonoperative treatment. In this case, the risks of operative intervention involves bleeding, infection, risks of damage to neurovascular structures, the risk of needing further surgery, posttraumatic arthritis and the risks involved with complication from anesthesia. We will proceed with the above procedure. The patient accepts these risks; understands and agrees with my recommendations. I also discussed my proposed postoperative care and follow-up plan. All questions were answered. Plan for OR []. Nothing by mouth []. Patient consented. Thanks for the consult, thanks for allowing me to participate in this patient's medical care. Juan Werner Jr. Jun 12, 2017 14:17
[2017-06-12] MEDS ORDERED: MORPHINE SULFATE 8 MG/ML INJ IV PUSH PRN (14:30)
[2017-06-12] MEDS ORDERED: ZOLPIDEM TARTRATE 5 MG TAB PO PRN (14:30)
[2017-06-12] MEDS ORDERED: MAGNESIUM HYDROXIDE SUSP 30 ML CUP PO PRN (14:30)
[2017-06-12] MEDS ORDERED: PROMETHAZINE HCL 25 MG TAB PO PRN (14:30)
[2017-06-12] MEDS ORDERED: LACTULOSE SYRUP 20 GM/30 ML CUP PO PRN (14:30)
[2017-06-12] MEDS ORDERED: BISACODYL 10 MG SUPP RECTAL PRN (14:30)
[2017-06-12] MEDS ORDERED: SODIUM CHLORIDE 0.9% FLUSH 10 ML FLUSH IV FLUSH PRN (14:30)
[2017-06-12] MEDS ORDERED: Post-op Orders (for Pharmacy) MISC XX ONE (14:30)
[2017-06-12] MEDS ORDERED: oxyCODONE/ACETAMINOPHEN 5 MG/325 MG TAB PO PRN (14:30)
[2017-06-12] MEDS ORDERED: SENNOSIDES 8.6 MG TAB PO PRN (14:30)
--- NOTE | 2017-06-12 15:26 | RADRPT ---
EXAM DATE/TIME: 06/12/2017 14:56 [facility] COMPARISON: HIP RIGHT (AP&LAT 2/3VWS) WO AP PELVIS, June 11, 2017, 15:49. INDICATIONS : Right hip pinning. MEDICAL HISTORY : None. SURGICAL HISTORY : None. ENCOUNTER: Initial ACUITY: 1 day PAIN SCORE: Non-responsive. LOCATION: Right hip. FINDINGS: 2 magnified C-arm spot views are centered over the hip joint and labeled right. 3 threaded orthopedic screws are seen involving the femoral neck. The screws are contained within the cortical confines of the femoral head. Subcapital femoral neck fracture noted. CONCLUSION: Limited images as detailed above. Subhash Castillo Jr., MD on June 12, 2017 at 15:24 Board Certified Radiologist. This report was verified electronically.
--- NOTE | 2017-06-12 15:35 | PD.OP ---
cc: Juan Werner Jr., MD Operative Report Date of Surgery: Jun 12, 2017 Preoperative Diagnosis: Right valgus impacted femoral neck fracture Postoperative Diagnosis: Same Procedure: Right hip percutaneous screw fixation Anesthesia: Gen. Surgeon: Juan Werner Applications Instructor(s): Staff Resident Surgeon: Estimated blood loss: Minimal cc Implants: Synthes stainless steel cannulated screws, 6.5mm. The patient received intravenous Ancef. After the appropriate anesthesia was administered, the patient was transferred to the fracture table. The fracture was left in situ. The hip was prepped and draped in usual sterile fashion. Using fluoroscopic guidance we made 3 small percutaneous incisions on the lateral aspect of the hip. We then incised through the deep fascia as well. We placed three threaded guidewires in a triangular configuration, starting laterally with the tips of the guidewires placed within the femoral head. We confirmed that there was no intra-articular penetration of the tips of these guidewires. The lateral aspect of the guidewires were kept proximal to the lower portion of the lesser trochanter to reduce the risk of periprosthetic fracture. We measured the appropriate depth for the screws and then drilled the cortex laterally. The 3 screws were then placed within the bone. The screws purchase into the bone was considered to be excellent. We took final fluoroscopic imaging which revealed that the fracture remained good position. The hardware was in good position as well. The wounds were thoroughly irrigated and then closed with a alexandre. The postoperative plan is to start 50% weightbearing. Additionally, we will initiate postoperative antibiotics for 24 hours along with DVT prophylaxis consisting of early mobilization, SCDs, compression stockings, and []. POSTP-OP PLAN OF ACTIVITY Antibiotics: Ancef Antiocoagulation: Lovenox Weight bearing status: 50% WB PT/OT: OOB TID Dressing: do not change Future procedure planned: none Dispo: expected discharge 1-2 days. Likely home with . Juan Werner Jr., MD Jun 12, 2017 15:35
[2017-06-12] MEDS: oxyCODONE/ACETAMINOPHEN 5 MG/325 MG TAB PO PRN (18:40)
[2017-06-12] MEDS: traZODone HCL 100 MG TAB PO SCH (20:38)
[2017-06-12] MEDS: ATORVASTATIN 20 MG TAB PO SCH (20:38)
--- NOTE | 2017-06-12 22:46 | EKG ---
Date Performed: 06/11/2017 Time Performed: 19:15:41 PTAGE: 72 years EKG: SINUS BRADYCARDIA INTRAVENTRICULAR CONDUCTION DELAY MINIMAL VOLTAGE CRITERIA FOR LVH, CONSI DODIE NORMAL VARIANT ABNORMAL R WAVE PROGRESSION ABNORMAL ECG PREVIOUS TRACING : 08/02/2009 12.03 Compared to the previous tracing abnormal R wave progressio n is present DOCTOR: Shantal Edwards Interpretating Date/Time 06/12/2017 22:45:24
[2017-06-13 00:40] VITALS: BP 157/72; PULSE 60; RESP 18; TEMP 97; O2SAT 96
[2017-06-13] MEDS ORDERED: ENOXAPARIN SODIUM 30 MG/0.3 ML SYRINGE SQ SCH (03:00)
[2017-06-13 04:00] VITALS: BP 149/70; PULSE 63; RESP 17; TEMP 98; O2SAT 94
[2017-06-13 08:00] VITALS: BP 150/78; PULSE 63; RESP 16; TEMP 98.1; O2SAT 93
[2017-06-13] MEDS ORDERED: PNEUMOCOCCAL POLYVALENT INJ 25 MCG/0.5 ML SYR IM ONE (09:00)
[2017-06-13] MEDS ORDERED: INFLUENZA VIRUS VACCINE (QUADRIVALENT) 0.5 ML SYR IM ONE (09:00)
[2017-06-13 09:07] LABS: AUTOMATED NEUTROPHIL # 3.5 TH/MM3 (1.8-7.7); BASOPHIL % 0.6 % (0.0-2.0); EOSINOPHIL # 0.4 TH/MM3 (0-0.4); EOSINOPHIL % 6.5 % (0.0-4.0); HEMATOCRIT 30.2 % (35.0-46.0); HEMO FLAGS DIFF FINAL; LYMPH % 21.6 % (9.0-44.0); LYMPHOCYTE # 1.3 TH/MM3 (1.0-4.8); MEAN CELL VOLUME 93.1 FL (80.0-100.0); MEAN CORPUSCULAR HEMOGLOBIN 31.5 PG (27.0-34.0); MEAN CORPUSCULAR HGB CONC 33.8 % (32.0-36.0); MONO % 10.9 % (0.0-8.0); NEUT % 60.4 % (16.0-70.0); PLATELET COUNT 119 TH/MM3 (150-450); RED BLOOD COUNT 3.24 MIL/MM3 (4.00-5.30); RED CELL DISTRIBUTION WIDTH 14.4 % (11.6-17.2); WHITE BLOOD COUNT 5.8 TH/MM3 (4.0-11.0)
[2017-06-13 09:23] LABS: ANION GAP 8 MEQ/L (5-15); AST (GOT) 17 U/L (15-37); BICARBONATE 25.2 MEQ/L (21.0-32.0); BLOOD UREA NITROGEN 19 MG/DL (7-18); CHLORIDE 102 MEQ/L (98-107); GLOMERULAR FILTRATION RATE 65 ML/MIN (>89); POTASSIUM 3.9 MEQ/L (3.5-5.1); SODIUM (NA) 135 MEQ/L (136-145)
[2017-06-13 09:25] LABS: ALT (GPT) 18 U/L (10-53)
[2017-06-13 09:27] LABS: ALKALINE PHOSPHATASE 47 U/L (45-117); TOTAL BILIRUBIN ADULT 0.3 MG/DL (0.2-1.0)
[2017-06-13] MEDS: SODIUM CHLORIDE 0.9% FLUSH 10 ML FLUSH IV FLUSH SCH ×2 (09:30→21:57)
[2017-06-13] MEDS: oxyCODONE/ACETAMINOPHEN 5 MG/325 MG TAB PO PRN (09:33)
[2017-06-13] MEDS: METOPROLOL TARTRATE 50 MG TAB PO SCH ×2 (09:33→21:54)
[2017-06-13] MEDS: buPROPion HCL 150 MG SUSTAINED RELEASE TAB PO SCH ×2 (09:33→21:55)
[2017-06-13] MEDS: amLODIPine BESYLATE 5 MG TAB PO SCH (09:33)
[2017-06-13] MEDS: ALLOPURINOL 100 MG TAB PO SCH (09:33)
[2017-06-13] MEDS: DOCUSATE SODIUM 50 MG/SENNA 8.6 MG TAB PO SCH ×2 (09:33→21:54)
--- NOTE | 2017-06-13 10:35 | HHI.PR ---
Subjective Remarks Patient is doing well postop. She is ready ambulating longer distances than expected. She is in the chair when seen today. Pain is under good control. Objective Vital Signs Date Time Temp Pulse Resp B/P (MAP) Pulse Ox O2 Delivery O2 Flow Rate FiO2 06/13/17 09:35 Room Air 06/13/17 08:00 98.1 63 16 150/78 (102) 93 06/13/17 04:00 98.0 63 17 149/70 (96) 94 06/13/17 00:40 97.0 60 18 157/72 (100) 96 06/12/17 20:20 97.9 60 16 136/59 (84) 95 06/12/17 18:42 169/80 (109) 06/12/17 17:56 96 21 06/12/17 16:30 52 14 170/79 (109) 100 Room Air 06/12/17 16:15 97.4 50 14 163/81 (108) 100 Room Air 06/12/17 16:00 96.6 50 16 183/83 (116) 97 06/12/17 16:00 52 14 159/74 (102) 100 Room Air 06/12/17 15:45 51 14 163/84 (110) 99 Nasal Cannula 2 06/12/17 15:30 49 14 172/77 (108) 100 Nasal Cannula 2 06/12/17 15:15 97.4 50 14 122/65 (84) 100 Nasal Cannula 2 06/12/17 12:00 97.7 52 16 164/82 (109) 95 I/O 06/12/17 06/12/17 06/12/17 06/13/17 06/13/17 06/13/17 07:00 15:00 23:00 07:00 15:00 23:00 Intake Total 200 ml 300 ml 340 ml 460 ml Output Total 25 ml Balance 200 ml 275 ml 340 ml 460 ml Intake Oral 0 ml 240 ml 360 ml IV Total 200 ml 100 ml 100 ml Other 300 ml Estimated Blood Loss 25 ml # Voids 6 2 2 2 # Bowel Movements 0 1 0 Result Diagram: 06/13/1780006/13/17800 Objective Remarks GENERAL: NAD, A&Ox3 HEAD: Normocephalic. NECK: Supple, trachea midline. No lymphadenopathy. EYES: No scleral icterus. No injection or drainage. CARDIOVASCULAR: Regular rate and rhythm without murmurs, gallops, or rubs. RESPIRATORY: Breath sounds equal bilaterally. No accessory muscle use. GASTROINTESTINAL: Abdomen soft, non-tender, nondistended. MUSCULOSKELETAL: No cyanosis, or edema. Right hip wound bandage. SKIN: Warm and dry. NEURO: No focal neurological deficitis. A/P Problem List: (1) Closed fracture of neck of right femur ICD Code: S72.001A - Fracture of unspecified part of neck of right femur, initial encounter for closed fracture Status: Acute Assessment and Plan Assessment and plan 72-year-old female admitted secondary to right hip fracture. Recovering well. Labs reviewed. Hemoglobin stable. No further need to monitor hemoglobin levels. Acute right hip fracture Surgical repair completed 06/12/17 Continue as needed pain treatments Orthotic consulted PT Blood thinners Gen. anxiety disorder Depression Continue baseline treatments Follow clinically Hyperlipidemia Follows in outpatient No change to baseline treatments Gastroesophageal reflux disease Continue baseline treatments Gout Monitor clinically No change to baseline managements Hypertension Follow blood pressures Continue baseline treatments DVT prophylaxis Anticoagulation postop, per orthopedic recommendations Problem Qualifiers (1) Closed fracture of neck of right femur: Qualified Codes: S72.001A - Fracture of unspecified part of neck of right femur , initial encounter for closed fracture Ye Riggs MD Jun 13, 2017 10:35
[2017-06-13] MEDS: SODIUM CHLOR 0.9% 1000 ML INJ 1,000 ML IV SCH ×2 (11:15→21:15)
[2017-06-13 12:00] VITALS: BP 110/65; PULSE 65; RESP 16; TEMP 96.4; O2SAT 94
--- NOTE | 2017-06-13 13:55 | PD.ORT.PN ---
Subjective Subjective Remarks no issues. pain is controlled. Objective Vitals Vital Signs Date Time Temp Pulse Resp B/P (MAP) Pulse Ox O2 Delivery O2 Flow Rate FiO2 06/13/17 09:35 Room Air 06/13/17 08:00 98.1 63 16 150/78 (102) 93 06/13/17 04:00 98.0 63 17 149/70 (96) 94 06/13/17 00:40 97.0 60 18 157/72 (100) 96 06/12/17 20:20 97.9 60 16 136/59 (84) 95 06/12/17 18:42 169/80 (109) 06/12/17 17:56 96 21 06/12/17 16:30 52 14 170/79 (109) 100 Room Air 06/12/17 16:15 97.4 50 14 163/81 (108) 100 Room Air 06/12/17 16:00 96.6 50 16 183/83 (116) 97 06/12/17 16:00 52 14 159/74 (102) 100 Room Air 06/12/17 15:45 51 14 163/84 (110) 99 Nasal Cannula 2 06/12/17 15:30 49 14 172/77 (108) 100 Nasal Cannula 2 06/12/17 15:15 97.4 50 14 122/65 (84) 100 Nasal Cannula 2 I/O 06/12/17 06/12/17 06/12/17 06/13/17 06/13/17 06/13/17 06:59 14:59 22:59 06:59 14:59 22:59 Intake Total 200 ml 300 ml 340 ml 460 ml 100 ml Output Total 25 ml Balance 200 ml 275 ml 340 ml 460 ml 100 ml Intake Oral 0 ml 240 ml 360 ml IV Total 200 ml 100 ml 100 ml 100 ml Other 300 ml Estimated Blood Loss 25 ml # Voids 6 2 2 2 # Bowel Movements 0 1 0 Result Diagram: 06/13/17 0806/13/17800 Objective Remarks RIGHT lower extremity neurovascularly intact. Wound and dressing clean, dry and intact. Good hip range of motion. Assessment & Plan Assessment and Plan POD 1- Right hip perc screw Doing great. pain controlled. 50% wb Lovenox No dressing changes f/u oupatient 2 wk Juan Werner Jr., MD Jun 13, 2017 13:55
[2017-06-13] MEDS: ENOXAPARIN SODIUM 30 MG/0.3 ML SYRINGE SQ SCH (14:46)
[2017-06-13 16:00] VITALS: BP 157/78; PULSE 62; RESP 16; TEMP 97.4; O2SAT 98
[2017-06-13 20:10] VITALS: BP 152/76; PULSE 65; RESP 17; TEMP 99.1; O2SAT 96
[2017-06-13] MEDS: traZODone HCL 100 MG TAB PO SCH (21:55)
[2017-06-13] MEDS: ATORVASTATIN 20 MG TAB PO SCH (21:55)
[2017-06-13] MEDS: MULTIVITAMINS/MINERALS THERAPEUTIC TAB PO SCH (21:55)
[2017-06-14 00:50] VITALS: BP 146/89; PULSE 67; RESP 17; TEMP 98.4; O2SAT 95
[2017-06-14] MEDS: ENOXAPARIN SODIUM 30 MG/0.3 ML SYRINGE SQ SCH ×2 (02:23→14:49)
[2017-06-14 04:50] VITALS: BP 142/77; PULSE 63; RESP 17; TEMP 98; O2SAT 94
[2017-06-14] MEDS: SODIUM CHLOR 0.9% 1000 ML INJ 1,000 ML IV SCH ×2 (07:15→17:15)
[2017-06-14 08:00] VITALS: BP 133/71; PULSE 61; RESP 17; TEMP 97; O2SAT 95
[2017-06-14] MEDS: ALLOPURINOL 100 MG TAB PO SCH (09:23)
[2017-06-14] MEDS: buPROPion HCL 150 MG SUSTAINED RELEASE TAB PO SCH ×2 (09:23→22:37)
[2017-06-14] MEDS: DOCUSATE SODIUM 50 MG/SENNA 8.6 MG TAB PO SCH ×2 (09:24→22:36)
[2017-06-14] MEDS: SODIUM CHLORIDE 0.9% FLUSH 10 ML FLUSH IV FLUSH SCH ×2 (09:24→22:40)
[2017-06-14] MEDS: MULTIVITAMINS/MINERALS THERAPEUTIC TAB PO SCH ×2 (09:24→22:37)
[2017-06-14] MEDS: amLODIPine BESYLATE 5 MG TAB PO SCH (09:24)
[2017-06-14] MEDS: METOPROLOL TARTRATE 50 MG TAB PO SCH ×2 (09:24→22:37)
--- NOTE | 2017-06-14 10:57 | HHI.PR ---
Subjective Remarks Continued improvement with physical therapy. Patient has been cleared for discharge to retirement facility. Orthopedics this patient in 2 weeks as an outpatient. At this point she does not desire to go to a retirement facility. She is trying to discharge to home. Objective Vital Signs Date Time Temp Pulse Resp B/P (MAP) Pulse Ox O2 Delivery O2 Flow Rate FiO2 06/14/17 08:00 97.0 61 17 133/71 (91) 95 06/14/17 04:50 98.0 63 17 142/77 (98) 94 06/14/17 00:50 98.4 67 17 146/89 (108) 95 06/13/17 20:10 99.1 65 17 152/76 (101) 96 06/13/17 16:00 97.4 62 16 157/78 (104) 98 06/13/17 12:00 96.4 65 16 110/65 (80) 94 I/O 06/13/17 06/13/17 06/13/17 06/14/17 06/14/17 06/14/17 07:00 15:00 23:00 07:00 15:00 23:00 Intake Total 460 ml 680 ml 360 ml 240 ml Balance 460 ml 680 ml 360 ml 240 ml Intake Oral 360 ml 580 ml 360 ml 240 ml IV Total 100 ml 100 ml # Voids 2 4 1 1 # Bowel Movements 0 1 1 0 Result Diagram: 06/13/1780006/13/17800 Objective Remarks GENERAL: NAD, A&Ox3 HEAD: Normocephalic. NECK: Supple, trachea midline. No lymphadenopathy. EYES: No scleral icterus. No injection or drainage. CARDIOVASCULAR: Regular rate and rhythm without murmurs, gallops, or rubs. RESPIRATORY: Breath sounds equal bilaterally. No accessory muscle use. GASTROINTESTINAL: Abdomen soft, non-tender, nondistended. MUSCULOSKELETAL: No cyanosis, or edema. Right hip wound bandage. SKIN: Warm and dry. NEURO: No focal neurological deficitis. A/P Problem List: (1) Closed fracture of neck of right femur ICD Code: S72.001A - Fracture of unspecified part of neck of right femur, initial encounter for closed fracture Status: Acute Assessment and Plan Assessment and plan 72-year-old female admitted secondary to right hip fracture. Recovering well. Patient is planning to discharge home rather than retirement facility. Further PT here with possible discharge in 1-2 days. Acute right hip fracture Surgical repair completed 06/12/17 Continue as needed pain treatments Orthotic consulted PT Blood thinners Gen. anxiety disorder Depression Continue baseline treatments Follow clinically Hyperlipidemia Follows in outpatient No change to baseline treatments Gastroesophageal reflux disease Continue baseline treatments Gout Monitor clinically No change to baseline managements Hypertension Follow blood pressures Continue baseline treatments DVT prophylaxis Anticoagulation postop, per orthopedic recommendations Discharge planning Discharge in 1-2 days with home health PT Problem Qualifiers (1) Closed fracture of neck of right femur: Qualified Codes: S72.001A - Fracture of unspecified part of neck of right femur , initial encounter for closed fracture Ye Riggs MD Jun 14, 2017 10:57
[2017-06-14 12:00] VITALS: BP 142/84; PULSE 72; RESP 18; TEMP 97.3; O2SAT 97
[2017-06-14 15:50] VITALS: BP 136/71; PULSE 60; RESP 16; TEMP 97.7
[2017-06-14 19:24] VITALS: BP 146/68; PULSE 63; RESP 16; TEMP 98.1; O2SAT 96
[2017-06-14] MEDS: traZODone HCL 100 MG TAB PO SCH (22:36)
[2017-06-14] MEDS: ATORVASTATIN 20 MG TAB PO SCH (22:37)
[2017-06-15 00:57] VITALS: BP 140/72; PULSE 62; RESP 17; TEMP 98.6; O2SAT 94
[2017-06-15] MEDS: SODIUM CHLOR 0.9% 1000 ML INJ 1,000 ML IV SCH ×2 (02:17→13:15)
[2017-06-15] MEDS: ENOXAPARIN SODIUM 30 MG/0.3 ML SYRINGE SQ SCH ×2 (02:17→15:36)
[2017-06-15 04:27] VITALS: BP 117/69; PULSE 60; RESP 17; TEMP 97; O2SAT 96
[2017-06-15 08:00] VITALS: BP 154/77; PULSE 56; RESP 18; TEMP 96.4; O2SAT 96
--- NOTE | 2017-06-15 08:38 | HHI.FF ---
Face to Face Verification Diagnosis: (1) Closed fracture of neck of right femur Physical Therapy Order: Evaluate and Treat, Improve ambulation, Strength and gait training Home Health Nursing Order: Medical education Signs/symptoms of disease process Medication education-adverse effect I have seen patient Anne Willams on 06/15/17. My clinical findings support the need for the requested home health care services because: Ltd mobility Ltd mobility - disease progression Limited ability to care for self I certify that my clinical findings support that this patient is homebound because: unsteady gait/balance Post-op weakness Unsteady gait/balance Susan Conley Jun 15, 2017 08:38
[2017-06-15] MEDS ORDERED: ASPI81TA11 PO (08:43)
--- NOTE | 2017-06-15 08:50 | HHI.DS ---
Discharge Summary Admission Date Jun 11, 2017 at 19:38 Discharge Date: Jun 15, 2017 Admitting Diagnosis right hip fracture (1) Closed fracture of neck of right femur ICD Codes: S72.001A - Fracture of unspecified part of neck of right femur, initial encounter for closed fracture Status: Acute Consultants Dr. Werner Procedures 06/12/17 Right hip percutaneous screw placement per Dr. Werner Brief History Mrs. Willams is a 72-year-old female. She is here secondary to a right hip fracture. She fell on her right hip 2 days prior to coming into the ER. Over these past 2 days she has had pain with weightbearing and attempts at ambulation. She says she is not in too much pain when she sits in the bed. Pain has been referred to the right groin. She came to the emergency room last night was discovered to have a fracture of the right hip. No other complaints. The following was accidental not related to syncope. No positive cardiac or pulmonary history. Baseline medical conditions or osteoarthritis, anxiety disorder, depression, hyperlipidemia, reflux, gout, hypertension. Medically she is clear for surgery today. CBC/BMP: 06/13/17 0801 06/13/17 0801 Significant Findings Laboratory Tests Test 06/13/17 08:01 Red Blood Count 3.24 MIL/MM3 (4.00-5.30) Hemoglobin 10.2 GM/DL (11.6-15.3) Hematocrit 30.2 % (35.0-46.0) Platelet Count 119 TH/MM3 (150-450) Monocytes (%) (Auto) 10.9 % (0.0-8.0) Eosinophils (%) (Auto) 6.5 % (0.0-4.0) Blood Urea Nitrogen 19 MG/DL (7-18) Total Protein 5.7 GM/DL (6.4-8.2) Albumin 2.8 GM/DL (3.4-5.0) Sodium Level 135 MEQ/L (136-145) Estimat Glomerular Filtration Rate 65 ML/MIN (>89) Imaging Last Impressions Hip X-Ray 06/12/17 0000 Signed Impressions: Service Date/Time: Monday, June 12, 2017 14:56 - CONCLUSION: Limited images as detailed above. Subhash Castillo Jr., MD Pelvis X-Ray 06/11/17 0000 Signed Impressions: Service Date/Time: Sunday, June 11, 2017 15:42 - CONCLUSION: 1. Right femoral neck fracture Torsten Diaz MD PE at Discharge GENERAL: NAD, A&Ox3 HEAD: Normocephalic. NECK: Supple, trachea midline. No lymphadenopathy. EYES: No scleral icterus. No injection or drainage. CARDIOVASCULAR: Regular rate and rhythm without murmurs, gallops, or rubs. RESPIRATORY: Breath sounds equal bilaterally. No accessory muscle use. GASTROINTESTINAL: Abdomen soft, non-tender, nondistended. MUSCULOSKELETAL: No cyanosis, or edema. Right hip wound bandage. SKIN: Warm and dry. NEURO: No focal neurological deficitis. Hospital Course Mrs. Willams is a 72-year-old female. She is here secondary to a right hip fracture. She fell on her right hip 2 days prior to coming into the ER. She says she is not in too much pain when she sits in the bed. Pain has been referred to the right groin. She came to the emergency room was discovered to have a fracture of the right hip. Patient is s/p right hip percutaneous screw placement per Dr. Werner on 06/12/17. Patient recovering well. She does not wish to go to a SNF. Patient worked with PT in hospital and is being discharged home with home PT. This was discussed with Dr. Werner who is aware of the plan. Patient received Lovenox SQ for DVT anticoagulation in hospital. Dr. Werner asked about anticoagulation at discharge none recommended. Patient also has chronic medical conditons including Gen. anxiety disorder, Depression, Hyperlipemia, Gastroesophageal reflux disease, Gout, Hypertension which were monitored and treated with home medication regiment as appropriate. Pt Condition on Discharge: Stable Discharge Disposition: Disch w/ Home Health Serv Discharge Instructions DIET: Follow Instructions for: As Tolerated, No Restrictions Activities you can perform: Partial Weight Bearing Other Activity Instructions: 50% weight bearing. No dressing changes Follow up Referrals: Orthopedics - 2 Weeks @ [facility] with Juan Werner Jr., MD New Medications: Aspirin (Aspirin EC) 81 Mg Tabdr 81 MG PO DAILY for Blood Clot Prevention, #14 TAB 0 Refills Oxycodone-Acetaminophen (Percocet) 5-325 mg Tab 1 TAB PO Q4H PRN for PAIN, #60 TAB 0 Refills Continued Medications: Allopurinol (Allopurinol) 100 Mg Tab 100 MG PO DAILY for Gout, #30 TAB 0 Refills Amlodipine (Amlodipine) 2.5 Mg Tab 2.5 MG PO DAILY for Blood Pressure Management, #30 TAB 0 Refills Atorvastatin (Atorvastatin) 20 Mg Tab 20 MG PO HS for Cholesterol Management, #30 TAB 0 Refills Bupropion HCl ER 24 HR (Bupropion HCl ER 24 HR) 300 Mg Tab 300 MG PO DAILY for Control Depression, TAB 0 Refills Metoprolol Tartrate (Metoprolol Tartrate) 50 Mg Tab 50 MG PO BID, #60 TAB 0 Refills Ranitidine (Ranitidine) 300 Mg Tab 300 MG PO DAILY for Heartburn Management, #30 TAB 0 Refills Trazodone (Trazodone) 100 Mg Tablet 100 MG PO HS for Control Depression, #30 TAB 0 Refills Discontinued Medications: Meloxicam (Meloxicam) 7.5 Mg Tab 7.5 MG PO DAILY for Arthritis Pain, TAB 0 Refills Susan Conley Jun 15, 2017 08:50
[2017-06-15] MEDS: MULTIVITAMINS/MINERALS THERAPEUTIC TAB PO SCH (09:03)
[2017-06-15] MEDS: METOPROLOL TARTRATE 50 MG TAB PO SCH (09:03)
[2017-06-15] MEDS: DOCUSATE SODIUM 50 MG/SENNA 8.6 MG TAB PO SCH (09:03)
[2017-06-15] MEDS: ALLOPURINOL 100 MG TAB PO SCH (09:03)
[2017-06-15] MEDS: amLODIPine BESYLATE 5 MG TAB PO SCH (09:03)
[2017-06-15] MEDS: buPROPion HCL 150 MG SUSTAINED RELEASE TAB PO SCH (09:03)
[2017-06-15] MEDS: SODIUM CHLORIDE 0.9% FLUSH 10 ML FLUSH IV FLUSH SCH (09:04)
--- NOTE | 2017-06-15 11:26 | HHI.DS ---
Discharge Summary Admission Date Jun 11, 2017 at 19:38 Discharge Date: Jun 15, 2017 Admitting Diagnosis right hip fracture (1) Closed fracture of neck of right femur ICD Code: S72.001A - Fracture of unspecified part of neck of right femur, initial encounter for closed fracture Status: Acute Procedures right hip percutaneous screw placement per Dr. Werner on 06/12/17 Brief History - From Admission Mrs. Willmas is a 72-year-old female. She is here secondary to a right hip fracture. She fell on her right hip 2 days prior to coming into the ER. Over these past 2 days she has had pain with weightbearing and attempts at ambulation. She says she is not in too much pain when she sits in the bed. Pain has been referred to the right groin. She came to the emergency room last night was discovered to have a fracture of the right hip. No other complaints. The following was accidental not related to syncope. No positive cardiac or pulmonary history. Baseline medical conditions or osteoarthritis, anxiety disorder, depression, hyperlipidemia, reflux, gout, hypertension. Medically she is clear for surgery today. CBC/BMP: 06/13/17 0801 06/13/17 0801 Significant Findings Laboratory Tests Test 06/13/17 08:01 Red Blood Count 3.24 MIL/MM3 (4.00-5.30) Hemoglobin 10.2 GM/DL (11.6-15.3) Hematocrit 30.2 % (35.0-46.0) Platelet Count 119 TH/MM3 (150-450) Monocytes (%) (Auto) 10.9 % (0.0-8.0) Eosinophils (%) (Auto) 6.5 % (0.0-4.0) Blood Urea Nitrogen 19 MG/DL (7-18) Total Protein 5.7 GM/DL (6.4-8.2) Albumin 2.8 GM/DL (3.4-5.0) Sodium Level 135 MEQ/L (136-145) Estimat Glomerular Filtration Rate 65 ML/MIN (>89) Imaging Last Impressions Hip X-Ray 06/12/17 0000 Signed Impressions: Service Date/Time: Monday, June 12, 2017 14:56 - CONCLUSION: Limited images as detailed above. Subhash Castillo Jr., MD Pelvis X-Ray 06/11/17 0000 Signed Impressions: Service Date/Time: Sunday, June 11, 2017 15:42 - CONCLUSION: 1. Right femoral neck fracture Torsten Diaz MD PE at Discharge GENERAL: NAD, A&Ox3 HEAD: Normocephalic. NECK: Supple, trachea midline. No lymphadenopathy. EYES: No scleral icterus. No injection or drainage. CARDIOVASCULAR: Regular rate and rhythm without murmurs, gallops, or rubs. RESPIRATORY: Breath sounds equal bilaterally. No accessory muscle use. GASTROINTESTINAL: Abdomen soft, non-tender, nondistended. MUSCULOSKELETAL: No cyanosis, or edema. Right hip wound bandage. SKIN: Warm and dry. NEURO: No focal neurological deficits. Hospital Course Mrs. Willams is a 72-year-old female. She is here secondary to a right hip fracture. She fell on her right hip 2 days prior to coming into the ER. She says she is not in too much pain when she sits in the bed. Pain has been referred to the right groin. She came to the emergency room was discovered to have a fracture of the right hip. Patient is s/p right hip percutaneous screw placement per Dr. Werner on 06/12/17. Patient recovering well. She does not wish to go to a SNF. Patient worked with PT in hospital and is being discharged home with home PT. This was discussed with Dr. Werner who is aware of the plan. Patient received Lovenox SQ for DVT anticoagulation in hospital. Dr. Werner asked about anticoagulation at discharge none recommended. Patient also has chronic medical conditons including Gen. anxiety disorder, Depression, Hyperlipemia, Gastroesophageal reflux disease, Gout, Hypertension which were monitored and treated with home medication regiment as appropriate Pt Condition on Discharge: Stable Discharge Disposition: Disch w/ Home Health Serv Discharge Time: <= 30 minutes Discharge Instructions DIET: Follow Instructions for: As Tolerated, No Restrictions Activities you can perform: Partial Weight Bearing Other Activity Instructions: 50% weight bearing. Follow up Referrals: Orthopedics - 2 Weeks @ [facility] with Juan Werner Jr., MD New Medications: Aspirin (Aspirin EC) 81 Mg Tabdr 81 MG PO DAILY for Blood Clot Prevention, #14 TAB 0 Refills Oxycodone-Acetaminophen (Percocet) 5-325 mg Tab 1 TAB PO Q4H PRN for PAIN, #60 TAB 0 Refills Continued Medications: Allopurinol (Allopurinol) 100 Mg Tab 100 MG PO DAILY for Gout, #30 TAB 0 Refills Amlodipine (Amlodipine) 2.5 Mg Tab 2.5 MG PO DAILY for Blood Pressure Management, #30 TAB 0 Refills Atorvastatin (Atorvastatin) 20 Mg Tab 20 MG PO HS for Cholesterol Management, #30 TAB 0 Refills Bupropion HCl ER 24 HR (Bupropion HCl ER 24 HR) 300 Mg Tab 300 MG PO DAILY for Control Depression, TAB 0 Refills Metoprolol Tartrate (Metoprolol Tartrate) 50 Mg Tab 50 MG PO BID, #60 TAB 0 Refills Ranitidine (Ranitidine) 300 Mg Tab 300 MG PO DAILY for Heartburn Management, #30 TAB 0 Refills Trazodone (Trazodone) 100 Mg Tablet 100 MG PO HS for Control Depression, #30 TAB 0 Refills Discontinued Medications: Meloxicam (Meloxicam) 7.5 Mg Tab 7.5 MG PO DAILY for Arthritis Pain, TAB 0 Refills Susan Conley Jun 15, 2017 11:26
[2017-06-15 12:00] VITALS: BP 147/71; PULSE 51; RESP 18; TEMP 96.2; O2SAT 97
--- NOTE | 2017-06-15 12:54 | HHI.DCPOC ---
Discharge Care Plan Diagnosis: (1) Closed fracture of neck of right femur Goals to Promote Your Health * To prevent worsening of your condition and complications * To maintain your health at the optimal level Directions to Meet Your Goals Take your medications as prescribed Follow your dietary instruction Follow activity as directed Keep your appointments as scheduled Take your immunizations and boosters as scheduled If your symptoms worsen call your PCP, if no PCP go to Urgent Care Center or Emergency Room Smoking is Dangerous to Your Health. Avoid second hand smoke Call the 24-hour hour crisis hotline for domestic abuse at Susan Conley Jun 15, 2017 12:54
== END 2017-06-15 16:26 | disposition home health service (06) | DRG 482 ==
LOC: PHEFT 13:31 → PHEDA 19:38 → N06B 23:17
PROVIDERS: ADMIT Hospitalist; ATTEND Hospitalist
PROC: 0QH634Z Insertion of Internal Fixation Device into Right Upper Femur, Percutaneous Approach (ICD-10-PCS; principal; 2017-06-11)
DX: S72.011A Unspecified intracapsular fracture of right femur, initial encounter for closed fracture (principal); I10 Essential (primary) hypertension; E78.5 Hyperlipidemia, unspecified; M10.9 Gout, unspecified; K21.9 Gastro-esophageal reflux disease without esophagitis; F41.8 Other specified anxiety disorders; W01.0XXA Fall on same level from slipping, tripping and stumbling without subsequent striking against object, initial encounter; Y92.9 Unspecified place or not applicable; M19.90 Unspecified osteoarthritis, unspecified site
CPT/HCPCS: 72170; 73502; 76000; 80053; 85025; 85610; 85730; 86850; 86900; 86901; 90686; 90732; 93005; 94150; C1713; C1769; J0690; J1650; J2250; J3010; J3370; J7030; J7120; Q2038